=== PATIENT | female | born 1995 | race Caucasian/White ===

== ENCOUNTER → 2016-08-21 | Outpatient (CLI) | payer BC ==
[2016-08-21 18:24] LABS: BASO # 0.1 K/mm3 (0.0-0.2); BASO % 1.3 % (0.0-1.0); EOS % 0.5 % (0.0-3.0); LARGE UNSTAINED CELL # 0.1 K/mm3 (0.0-0.4); LARGE UNSTAINED CELL % 1.2 % (0.0-4.0); LYMPH # 2.5 K/mm3 (1.5-6.5); LYMPH % 27.9 % (24.0-44.0); MEAN CORPUSCULAR HEMOGLOBIN 29.3 pg (27.0-33.0); MEAN CORPUSCULAR HGB CONC 34.3 g/dl (32.0-36.5); MEAN CORPUSCULAR VOLUME 85.4 fl (80.0-96.0); MONO # 0.4 K/mm3 (0.0-0.8); MONO % 4.6 % (0.0-5.0); NEUTROPHILS # 5.5 K/mm3 (1.8-7.7); NEUTROPHILS % 64.6 % (36.0-66.0); PLATELET COUNT, AUTOMATED 202 k/mm3 (150-450); RED CELL DISTRIBUTION WIDTH 13.2 % (11.5-14.5); WHITE BLOOD COUNT 8.6 K/mm3 (4.0-10.0)
[2016-08-22 12:36] LABS: HIV SCRN NEGATIVE (NEGATIVE); HIV SCRN1 NEGATIVE (NEGATIVE)
[2016-08-22 12:37] LABS: CONTROL LINE INT CTR LINE PRESENT
[2016-08-23 09:13] LABS: HBsAg Prenatal NEGATIVE (NEGATIVE)
== END ==
LOC: M SMT 15:10
PROVIDERS: ATTEND Advanced Practice Midwife
DX: Z36 Encounter for antenatal screening of mother (principal)

== ENCOUNTER 2016-08-29 17:21 | Emergency (ER) | payer BC ==
[2016-08-29] MEDS ORDERED: ONDANSETRON 4MG/2ML VIAL (J2405) As Ordered ONE (20:56)
[2016-08-29 21:22] LABS: BASO % 0.4 % (0.0-1.0); EOS # 0.1 K/mm3 (0.0-0.50); EOS % 1.2 % (0.0-3.0); LARGE UNSTAINED CELL # 0.1 K/mm3 (0.0-0.4); LARGE UNSTAINED CELL % 1.8 % (0.0-4.0); LYMPH # 2.7 K/mm3 (1.5-6.5); MEAN CORPUSCULAR HEMOGLOBIN 29.6 pg (27.0-33.0); MEAN CORPUSCULAR HGB CONC 33.9 g/dl (32.0-36.5); MEAN CORPUSCULAR VOLUME 87.2 fl (80.0-96.0); MONO # 0.4 K/mm3 (0.0-0.8); MONO % 6.1 % (0.0-5.0); NEUTROPHILS # 3.4 K/mm3 (1.8-7.7); PLATELET COUNT, AUTOMATED 191 k/mm3 (150-450); RED CELL DISTRIBUTION WIDTH 12.4 % (11.5-14.5)
[2016-08-29 21:24] LABS: WHITE BLOOD COUNT 6.7 K/mm3 (4.0-10.0)
[2016-08-29 21:25] LABS: NEUTROPHILS % 50.5 % (36.0-66.0)
[2016-08-29 22:00] LABS: ANION GAP 9 MEQ/L (8-16); BLOOD UREA NITROGEN 7 MG/DL (7-18); CALCIUM LEVEL 8.7 MG/DL (8.5-10.1); CARBON DIOXIDE LEVEL 28 MEQ/L (21-32); CHLORIDE LEVEL 104 MEQ/L (98-107); CREATININE FOR GFR 0.76 MG/DL (0.55-1.02); GLUCOSE, FASTING 124 MG/DL (70-105); HCG, SERUM QUANTITATIVE 85925 MIU/ML; POTASSIUM SERUM 3.3 MEQ/L (3.5-5.1); SODIUM LEVEL 141 MEQ/L (136-145)
--- NOTE | 2016-08-29 22:40 | REPUSA ---
HISTORY: Assess for demise COMPARISON : None FINDINGS: Ultrasound examination of the pelvis was performed using transabdominal technique with grayscale, col or Doppler flow and spectral waveform analysis Anteverted uterus demonstrates a single gestational sac containing pole with CRL measuring 1.2 cm correlating to 7 weeks, 3 days gestation. heart rate 157 BPM. For technical reasons KATEY could not be obtained. Amniotic fluid is subjectively normal. No subchorionic hemorrhage. The maternal adnexal cul-de-sac regions demonstrate no significant abnorm alities. Both ovaries demonstrate no significant abnormalities. Given the early gestational age, the placenta location and amniotic fluid index could not be obtained . IMPRESSION: Single, live intrauterine gestation with an estimated age of 7 weeks, 3 days gestation with expected date of delivery 04/14/2017.
[2016-08-29] MEDS ORDERED: NITROFURANTOIN (MACROBID) 100 MG CAP As Ordered ONE (22:48)
--- NOTE | 2016-08-29 22:54 | EDDOCDS ---
Physician Documentation [facility] Name: Ashli Miller Age: 20 yrs Sex: Female : 1995 Arrival Date: 08/29/2016 Time: 17:21 Bed I4 / M4 Private MD: Kathy Frankel A Disposition: 08/29/16 22:45 Discharged to Home/Self Care. Impression: Vomiting of , unspecified, related conditions, unspecified, Urinary tract infection, site not specified. - Condition is Stable. - Discharge Instructions: Hyperemesis Gravidarum, Urinary Tract Infection. - Prescriptions for Macrobid 100 mg Oral Capsule - take 100 milligram by ORAL route every 12 hours for 10 days; 20 capsule. ZOFRAN ODT 4 mg - dissolve 1 tablet by ORAL route 4 times per day As needed do not chew, do not swallow whole; 10 tablet. - Medication Reconciliation, Local Pharmacy Hours form. - Follow up: Sherry Frey MD; When: 2 - 3 days; Reason: Recheck today's complaints, Continuance of care. - Problem is new. - Symptoms have improved. - Notes: USE MEDICATIONS INSTRUCTED, FOLLOW UP WITH YOUR DOCTOR IN 2-3 DAYS, RETURN TO THE ER IF THE SYMPTOMS WORSEN OR BECOME CONCERNING Historical: - Allergies: no known allergies; - Home Meds: 1. none - PMHx: none; - PSHx: [place] tooth extraction; - Social history: Smoking status: Patient states former smoker of tobacco. No barriers to communication noted, The patient speaks fluent Togolese. - Family history: Not pertinent. - : The pt / caregiver states he / she is not on anticoagulants. Home medication list is obtained from the patient. - Exposure Risk Screening:: None identified. 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 3 in. (160.02 cm); Pain 8/10; 21:37 BP 102 / 55 LA Supine (auto/reg); ajs 21:37 BP 105 / 56 LA Sitting (auto/reg); Pulse 85; ajs 21:37 BP 107 / 61 LA Standing (auto/reg); Pulse 82; ajs 22:48 BP 111 / 54; Pulse 80; Resp 18; Temp 98.7; Pulse Ox 97% ; Pain 0/10; ajs 17:23 Body Mass Index 23.91 (61.23 kg, 160.02 cm) cmb MDM: 20:41 IV Saline Lock ordered. ck7 20:41 NS 0.9% 1000 ml IV at bolus once ordered. ck7 20:41 Ondansetron 4 mg IVP once ordered. ck7 20:41 Orthostatic VS ordered. ck7 20:42 US 1st trimester Ordered. EDMS 20:42 CBC with Diff Ordered. EDMS 20:42 MED Profile Ordered. EDMS 20:42 Hcg, Serum Quantitative Ordered. EDMS 20:42 UA Ordered. EDMS 21:49 CBC with Diff Reviewed. ck7 22:00 Financial registration complete. gjb 22:31 MED Profile Reviewed. ck7 22:31 UA Reviewed. ck7 22:31 Hcg, Serum Quantitative Reviewed. ck7 22:32 Fluid Challenge ordered. ck7 22:32 Nitrofurantoin 100 mg PO once ordered. ck7 Administered Medications: 21:13 Drug: NS 0.9% 1000 ml [sodium chloride 0.9 % intravenous solution] Route: IV; Rate: kc3 bolus; Site: right antecubital; 22:52 Follow up: IV Status: Infusion discontinued; IV Intake: 700ml dsf 21:13 Drug: Ondansetron 4 mg [ondansetron HCl 2 mg/mL intravenous solution (2 mL)] Route: kc3 IVP; Site: right antecubital; 22:51 Drug: Nitrofurantoin 100 mg [nitrofurantoin macrocrystal 50 mg capsule (2 caps)] Route: kc3 PO; Signatures: Dispatcher [employer] EDPrabhakar Flower RN RN dwg Jaren Vines, CHULA-C RPA-Cck7 Leisa King RN RN kc3 Beck, Gabriela gjb Fuller, Desiree RN dsf MTDD
--- NOTE | 2016-08-29 22:54 | EDDOCDS ---
Nurse's Notes [facility] Name: Ashli Miller Age: 20 yrs Sex: Female : 1995 Arrival Date: 08/29/2016 Time: 17:21 Bed I4 / M4 Private MD: Kathy Frankel A Diagnosis: Vomiting of , unspecified; related conditions, unspecified;Urinary tract infection, site not specified Presentation: 08/29 18:04 Presenting complaint: Patient states: Vomiting for 3 days, states 7 weeks , dwg denies abdominal/pelvic pain. Adult Sepsis Screening: The patient does not have new or worsening altered mentation. Patient's respiratory rate is less than 22. Systolic blood pressure is greater than 100. Patient has a qSOFA score of 0- Negative Sepsis Screen. Suicide/Homicide risk assessment- the patient denies having any suicidal and/or homicidal ideations and does not present with any other emotional, behavioral or mental health complaints. Status: Patient is not a passenger service manager or dependent. Transition of care: patient was not received from another setting of care. 18:04 Acuity: SARAH Level 4 dwg 18:04 Method Of Arrival: Walkin/Carried/Asstd dwg Triage Assessment: 18:06 General: Appears in no apparent distress, uncomfortable. Pain: Pain currently is 7 out dwg of 10 on a pain scale. Pt Declines HIV testing. 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 none - PMHx: none; - PSHx: [place] tooth extraction; - Social history: Smoking status: Patient states former smoker of tobacco. No barriers to communication noted, The patient speaks fluent Telugu. - Family history: Not pertinent. - : The pt / caregiver states he / she is not on anticoagulants. Home medication list is obtained from the patient. - Exposure Risk Screening:: None identified. Screenin:52 Screening information is obtained from the patient. Fall risk: No risks identified. kc3 Assistance ADL's: requires no assistance with activities of daily living. Abuse/DV Screen: The patient / caregiver reports he/she is: not in a situation that causes fear, pain or injury. Nutritional screening: No deficits noted. Advance Directives: Currently, there is no health care proxy. home support is adequate. Assessment: 20:12 General: Appears in no apparent distress, Behavior is appropriate for age, cooperative. sls1 GI: Abdomen is non- distended Reports nausea, vomiting, Denies pain. 21:13 General: Appears in no apparent distress, comfortable, Behavior is appropriate for age, kc3 cooperative. Pain: Denies pain. Neurological: Level of Consciousness is awake, alert, obeys commands, Oriented to person, place, time. Respiratory: Respiratory effort is even, unlabored. GI: Reports nausea. Derm: Skin is pink, warm & dry. 22:00 General: Appears in no apparent distress, comfortable, Behavior is appropriate for age, kc3 cooperative. Pain: Denies pain. Neurological: Level of Consciousness is awake, alert, obeys commands, Oriented to person, place, time. Respiratory: Respiratory effort is even, unlabored. GI: Bowel sounds present X 4 quads. Abd is soft and non tender. Derm: Skin is pink, warm & dry. Vital Signs: 17:23 BP 153 / 78; Pulse 78; Resp 16; Temp 98.7(O); Pulse Ox 100% ; Weight 61.23 kg; Height 5 cmb ft. 3 in. (160.02 cm); Pain 8/10; 21:37 BP 102 / 55 LA Supine (auto/reg); ajs 21:37 BP 105 / 56 LA Sitting (auto/reg); Pulse 85; ajs 21:37 BP 107 / 61 LA Standing (auto/reg); Pulse 82; ajs 22:48 BP 111 / 54; Pulse 80; Resp 18; Temp 98.7; Pulse Ox 97% ; Pain 0/10; ajs 17:23 Body Mass Index 23.91 (61.23 kg, 160.02 cm) cmb Vitals: 17:23 Log In Time: August 29, 2016 at 17:21. cmb ED Course: 17:23 Patient visited by Malissa Jauregui. cmb 17:23 Kathy Frankel is Private Physician. cmb 17:23 Patient moved to Waiting cmb 17:24 Patient moved to Pre RCE cmb 18:05 Triage Initiated dwg 20:08 Patient moved to Triage 1 sls1 20:12 Patient visited by Tatyana Holland RN. sls1 20:31 Jaren [facility]ines RPA-C [facility]. ck7 20:32 Lm Carrero DO is Attending Physician. ck7 20:32 Patient visited by Jaren Vines RPA-C. ck7 20:45 Patient moved to I4 / M4 mb9 21:06 Patient moved to Ultrasound dmg 21:13 Hcg, Serum Quantitative Sent. kc3 21:13 MED Profile Sent. kc3 21:13 CBC with Diff Sent. kc3 21:14 Patient visited by Leisa King RN. kc3 21:14 Inserted saline lock: 20 gauge in right antecubital area and blood collected. The kc3 patient tolerated the procedure well. Labs drawn. (by ED staff). Sent per order to lab. 21:20 Patient moved to I4 / M4 dm 21:37 notified of pt was found to be finnishing eating a rice crispy treat when this gag writer roxie went into the room to check vital signs. 21:38 Patient visited by Shayy Rodriges. ajs 22:08 UA Sent. kc3 22:31 Patient visited by Jaren Vines RPA-C. ck7 22:33 Notified physician's pharmacy sales assistant of [facility]. ajs 22:34 Patient visited by Shayy Rodriges. ajs 22:44 Sherry Frey MD is Referral Physician. ck7 22:48 Patient visited by Shayy Rodriges. ajs 22:52 Discontinued IV lock intact, bleeding controlled, pressure dressing applied, No kc3 redness/swelling at site. No procedures done that require assistance. 22:53 The patient / caregiver is instructed regarding the plan of care and ED course. kc3 Administered Medications: 21:13 Drug: NS 0.9% 1000 ml [sodium chloride 0.9 % intravenous solution] Route: IV; Rate: kc3 bolus; Site: right antecubital; 22:52 Follow up: IV Status: Infusion discontinued; IV Intake: 700ml dsf 21:13 Drug: Ondansetron 4 mg [ondansetron HCl 2 mg/mL intravenous solution (2 mL)] Route: kc3 IVP; Site: right antecubital; 22:51 Drug: Nitrofurantoin 100 mg [nitrofurantoin macrocrystal 50 mg capsule (2 caps)] Route: kc3 PO; Intake: 22:52 IV: 700.00ml; Total: 700.00ml. dsf Order Results: Lab Order: CBC with Diff; SPEC'M 08/29/16 21:11 Test: WHITE BLOOD COUNT; Value: 6.7; Range: 4.0-10.0; Units: K/mm3; Status: F Test: RED BLOOD COUNT; Value: 4.57; Range: 4.00-5.40; Units: M/mm3; Status: F Test: HEMOGLOBIN; Value: 13.5; Range: 12.0-16.0; Units: g/dl; Status: F Test: HEMATOCRIT; Value: 39.8; Range: 36.0-47.0; Units: %; Status: F Test: MEAN CORPUSCULAR VOLUME; Value: 87.2; Range: 80.0-96.0; Units: fl; Status: F Test: MEAN CORPUSCULAR HEMOGLOBIN; Value: 29.6; Range: 27.0-33.0; Units: pg; Status: F Test: MEAN CORPUSCULAR HGB CONC; Value: 33.9; Range: 32.0-36.5; Units: g/dl; Status: F Test: RED CELL DISTRIBUTION WIDTH; Value: 12.4; Range: 11.5-14.5; Units: %; Status: F Test: PLATELET COUNT, AUTOMATED; Value: 191; Range: 150-450; Units: k/mm3; Status: F Test: NEUTROPHILS %; Value: 50.5; Range: 36.0-66.0; Units: %; Status: F Test: LYMPH %; Value: 40.0; Range: 24.0-44.0; Units: %; Status: F Test: MONO %; Value: 6.1; Range: 0.0-5.0; Abnormal: Above high normal; Units: %; Status: F Test: EOS %; Value: 1.2; Range: 0.0-3.0; Units: %; Status: F Test: BASO %; Value: 0.4; Range: 0.0-1.0; Units: %; Status: F Test: LARGE UNSTAINED CELL %; Value: 1.8; Range: 0.0-4.0; Units: %; Status: F Test: NEUTROPHILS #; Value: 3.4; Range: 1.8-7.7; Units: K/mm3; Status: F Test: LYMPH #; Value: 2.7; Range: 1.5-6.5; Units: K/mm3; Status: F Test: MONO #; Value: 0.4; Range: 0.0-0.8; Units: K/mm3; Status: F Test: EOS #; Value: 0.1; Range: 0.0-0.50; Units: K/mm3; Status: F Test: BASO #; Value: 0.0; Range: 0.0-0.2; Units: K/mm3; Status: F Test: LARGE UNSTAINED CELL #; Value: 0.1; Range: 0.0-0.4; Units: K/mm3; Status: F Lab Order: MED Profile; SPEC'M 08/29/16 21:10 Test: GLUCOSE, FASTING; Value: 124; Range: 70-105; Abnormal: Above high normal; Units: MG/DL; Status: F Test: BLOOD UREA NITROGEN; Value: 7; Range: 7-18; Units: MG/DL; Status: F Test: CREATININE FOR GFR; Value: 0.76; Range: 0.55-1.02; Units: MG/DL; Status: F Test: SODIUM LEVEL; Value: 141; Range: 136-145; Units: MEQ/L; Status: F Test: POTASSIUM SERUM; Value: 3.3; Range: 3.5-5.1; Abnormal: Below low normal; Units: MEQ/L; Status: F Test: CHLORIDE LEVEL; Value: 104; Range: 98-107; Units: MEQ/L; Status: F Test: CARBON DIOXIDE LEVEL; Value: 28; Range: 21-32; Units: MEQ/L; Status: F Test: ANION GAP; Value: 9; Range: 8-16; Units: MEQ/L; Status: F Test: CALCIUM LEVEL; Value: 8.7; Range: 8.5-10.1; Units: MG/DL; Status: F Lab Order: Hcg, Serum Quantitative; SPEC'M 08/29/16 21:10 Test: HCG, SERUM QUANTITATIVE; Value: 69090; Units: MIU/ML; Status: F Test Note: ; GESTATIONAL AGE APPROXIMATE HCG RANGE (MIU/ML) 0.2-1 WEEK 5-50 1-2 WEEKS 50-500 2-3 WEEKS 100-5,000 3-4 WEEKS 500-10,000 4-5 WEEKS 1,000-50,000 5-6 WEEKS 10,000-100,000 6-8 WEEKS 15,000-200,000 2-3 MONTHS 10,000-100,000 NON FEMALES LESS THAN 3.0 Patient samples may contain human heterophilic antibodies that could react with immunoassays to give falsely elevated or depressed results. This assay has been designed to minimize interference from heterophilic antibodies. Elevated hCG levels have also been associated with trophoblastic disease and nontrophoblastic neoplasms. The possibility of having these diseases should be considered before a diagnosis of is made. This test is not intended for use as a surrogate marker for aiding in the diagnosis or monitoring the treatment of cancer patients. [employer] methodology. Lab Order: UA; SPEC'M 08/29/16 21:09 Test: APPEARANCE, URINE; Value: HAZY; Range: CLEAR; Status: F Test: COLOR, URINE; Value: YELLOW; Range: YELLOW; Status: F Test: PH,URINE; Value: 5.0; Range: 5.0-9.0; Units: UNITS; Status: F Test: SPECIFIC GRAVITY URINE AUTO; Value: 1.025; Range: 1.002-1.035; Status: F Test: PROTEIN, URINE AUTO; Value: NEGATIVE; Range: NEGATIVE; Units: mg/dL; Status: F Test: GLUCOSE, URINE (UA) AUTO; Value: NEGATIVE; Range: NEGATIVE; Units: mg/dL; Status: F Test: KETONE, URINE AUTO; Value: TRACE; Range: NEGATIVE; Abnormal: Above high normal; Units: mg/dL; Status: F Test: UROBILINOGEN, URINE AUTO; Value: 0.2; Range: 0.0-2.0; Units: mg/dL; Status: F Test: BILIRUBIN, URINE AUTO; Value: NEGATIVE; Range: NEGATIVE; Status: F Test: NITRITE, URINE AUTO; Value: NEGATIVE; Range: NEGATIVE; Status: F Test: LEUKOCYTE ESTERASE, URINE AUTO; Value: 3+; Range: NEGATIVE; Abnormal: Above high normal; Status: F Test: BLOOD, URINE BLOOD; Value: NEGATIVE; Range: NEGATIVE; Status: F Test: WBC, URINE AUTO; Value: 16; Range: 0-3; Abnormal: Above high normal; Units: /HPF; Status: F Test: RBC, URINE AUTO; Value: 6; Range: 0-3; Abnormal: Above high normal; Units: /HPF; Status: F Test: BACTERIA, URINE AUTO; Value: 1+; Range: NEGATIVE; Abnormal: Above high normal; Status: F Test: SQUAMOUS EPITHELIAL CELL UR AU; Value: 2; Range: 0-6; Units: /HPF; Status: F Test: MUCUS, URINE; Value: LARGE; Range: NEGATIVE; Status: F Test: HYALINE CAST, URINE AUTO; Value: 0; Range: 0-1; Units: /LPF; Status: F Outcome: 22:45 Discharge ordered by Provider. ck7 22:52 Discharge Assessment: Patient awake, alert and oriented x 3. No cognitive and/or kc3 functional deficits noted. Patient verbalized understanding of disposition instructions. patient administered narcotics - no. The following High Risk Discharge criteria are identified: None. Condition: stable. Discharge instructions given to patient, Instructed on discharge instructions, follow up and referral plans. medication usage, Demonstrated understanding of instructions, medications, Pt was receptive of discharge instructions/ teaching. Prescriptions given X 2. Ultrasound Study completed. Property :Personal belongings accompany Pt. 22:53 Patient left the ED. kc3 Signatures: Prabhakar Sandhu, RN Norma Darby DesireeRN RN Shayy Thomas Shannon, RN RN [email or web address] Malissa Jauregui Christopher RPA-C RPA-Cck7 Ger Salas,RN RN mb9 Leisa King,JUSTIN RN kc3 ERENDIRAD
--- NOTE | 2016-08-31 23:54 | EDDOCDS ---
Physician Documentation [facility] Name: Ashli Miller Age: 20 yrs Sex: Female : 1995 Arrival Date: 08/29/2016 Time: 17:21 Bed I4 / M4 Private MD: Kathy Frankel A Disposition: 08/29/16 22:45 Discharged to Home/Self Care. Impression: Vomiting of , unspecified, related conditions, unspecified, Urinary tract infection, site not specified. - Condition is Stable. - Discharge Instructions: Hyperemesis Gravidarum, Urinary Tract Infection. - Prescriptions for Macrobid 100 mg Oral Capsule - take 100 milligram by ORAL route every 12 hours for 10 days; 20 capsule. ZOFRAN ODT 4 mg - dissolve 1 tablet by ORAL route 4 times per day As needed do not chew, do not swallow whole; 10 tablet. - Medication Reconciliation, Local Pharmacy Hours form. - Follow up: Sherry Frey MD; When: 2 - 3 days; Reason: Recheck today's complaints, Continuance of care. - Problem is new. - Symptoms have improved. - Notes: USE MEDICATIONS INSTRUCTED, FOLLOW UP WITH YOUR DOCTOR IN 2-3 DAYS, RETURN TO THE ER IF THE SYMPTOMS WORSEN OR BECOME CONCERNING Historical: - Allergies: no known allergies; - Home Meds: 1. none - PMHx: none; - PSHx: [place] tooth extraction; - Social history: Smoking status: Patient states former smoker of tobacco. No barriers to communication noted, The patient speaks fluent [place]. - Family history: Not pertinent. - : The pt / caregiver states he / she is not on anticoagulants. Home medication list is obtained from the patient. - Exposure Risk Screening:: None identified. DERRICK HAND: 08/29 18:06 LMP 07/10/2016 [facility] Vital Signs: 17:23 BP 153 / 78; Pulse 78; Resp 16; Temp 98.7(O); Pulse Ox 100% ; Weight 61.23 kg / 134.99 cmb lbs; Height 5 ft. 3 in. (160.02 cm); Pain 8/10; 21:37 BP 102 / 55 LA Supine (auto/reg); ajs 21:37 BP 105 / 56 LA Sitting (auto/reg); Pulse 85; ajs 21:37 BP 107 / 61 LA Standing (auto/reg); Pulse 82; ajs 22:48 BP 111 / 54; Pulse 80; Resp 18; Temp 98.7; Pulse Ox 97% ; Pain 0/10; ajs 17:23 Body Mass Index 23.91 (61.23 kg, 160.02 cm) cmb MDM: 20:41 IV Saline Lock ordered. ck7 20:41 NS 0.9% 1000 ml IV at bolus once ordered. ck7 20:41 Ondansetron 4 mg IVP once ordered. ck7 20:41 Orthostatic VS ordered. ck7 20:42 US 1st trimester Ordered. EDMS 20:42 CBC with Diff Ordered. EDMS 20:42 MED Profile Ordered. EDMS 20:42 Hcg, Serum Quantitative Ordered. EDMS 20:42 UA Ordered. EDMS 21:49 CBC with Diff Reviewed. ck7 22:00 Financial registration complete. gjb 22:31 MED Profile Reviewed. ck7 22:31 UA Reviewed. ck7 22:31 Hcg, Serum Quantitative Reviewed. ck7 22:32 Fluid Challenge ordered. ck7 22:32 Nitrofurantoin 100 mg PO once ordered. ck7 23:23 [facility] Payment Agreement was scanned into [employer] and attached to record. [facility] 08/30 12:00 T-Sheet-- Draft Copy was scanned into [employer] and attached to record. gb Administered Medications: 08/29 21:13 Drug: NS 0.9% 1000 ml [sodium chloride 0.9 % intravenous solution] Route: IV; Rate: kc3 bolus; Site: right antecubital; 22:52 Follow up: IV Status: Infusion discontinued; IV Intake: 700ml dsf 21:13 Drug: Ondansetron 4 mg [ondansetron HCl 2 mg/mL intravenous solution (2 mL)] Route: kc3 IVP; Site: right antecubital; 22:51 Drug: Nitrofurantoin 100 mg [nitrofurantoin macrocrystal 50 mg capsule (2 caps)] Route: kc3 PO; Signatures: Dispatcher [employer] Prabhakar Yadav RN JUSTIN dwg Joycelyn Hendrix, Reg Reg gb Jaren Vines, RPA-C RPA-Cck7 Leisa King RN RN kc3 Rosana Patel b Niesha Rolle RN dsf The chart was reviewed and I authenticate all verbal orders and agree with the evaluation and treatment provided.Attachments: 23:23 [facility] Payment Agreement gjb 08/30 12:00 T-Sheet-- Draft Copy gb Chart Complete MTDD
--- NOTE | 2016-08-31 23:54 | EDDOCDS ---
Physician Documentation [facility] Name: Ashli Miller Age: 20 yrs Sex: Female : 1995 Arrival Date: 08/29/2016 Time: 17:21 Bed I4 / M4 Private MD: Kathy Frankel A Disposition: 08/29/16 22:45 Discharged to Home/Self Care. Impression: Vomiting of , unspecified, related conditions, unspecified, Urinary tract infection, site not specified. - Condition is Stable. - Discharge Instructions: Hyperemesis Gravidarum, Urinary Tract Infection. - Prescriptions for Macrobid 100 mg Oral Capsule - take 100 milligram by ORAL route every 12 hours for 10 days; 20 capsule. ZOFRAN ODT 4 mg - dissolve 1 tablet by ORAL route 4 times per day As needed do not chew, do not swallow whole; 10 tablet. - Medication Reconciliation, Local Pharmacy Hours form. - Follow up: Sherry Frey MD; When: 2 - 3 days; Reason: Recheck today's complaints, Continuance of care. - Problem is new. - Symptoms have improved. - Notes: USE MEDICATIONS INSTRUCTED, FOLLOW UP WITH YOUR DOCTOR IN 2-3 DAYS, RETURN TO THE ER IF THE SYMPTOMS WORSEN OR BECOME CONCERNING Historical: - Allergies: no known allergies; - Home Meds: 1. none - PMHx: none; - PSHx: [place] tooth extraction; - Social history: Smoking status: Patient states former smoker of tobacco. No barriers to communication noted, The patient speaks fluent Thai. - Family history: Not pertinent. - : The pt / caregiver states he / she is not on anticoagulants. Home medication list is obtained from the patient. - Exposure Risk Screening:: None identified. 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 3 in. (160.02 cm); Pain 8/10; 21:37 BP 102 / 55 LA Supine (auto/reg); ajs 21:37 BP 105 / 56 LA Sitting (auto/reg); Pulse 85; ajs 21:37 BP 107 / 61 LA Standing (auto/reg); Pulse 82; ajs 22:48 BP 111 / 54; Pulse 80; Resp 18; Temp 98.7; Pulse Ox 97% ; Pain 0/10; ajs 17:23 Body Mass Index 23.91 (61.23 kg, 160.02 cm) cmb MDM: 20:41 IV Saline Lock ordered. ck7 20:41 NS 0.9% 1000 ml IV at bolus once ordered. ck7 20:41 Ondansetron 4 mg IVP once ordered. ck7 20:41 Orthostatic VS ordered. ck7 20:42 US 1st trimester Ordered. EDMS 20:42 CBC with Diff Ordered. EDMS 20:42 MED Profile Ordered. EDMS 20:42 Hcg, Serum Quantitative Ordered. EDMS 20:42 UA Ordered. EDMS 21:49 CBC with Diff Reviewed. ck7 22:00 Financial registration complete. gjb 22:31 MED Profile Reviewed. ck7 22:31 UA Reviewed. ck7 22:31 Hcg, Serum Quantitative Reviewed. ck7 22:32 Fluid Challenge ordered. ck7 22:32 Nitrofurantoin 100 mg PO once ordered. ck7 23:23 [facility] Payment Agreement was scanned into [employer] and attached to record. [facility] 08/30 12:00 T-Sheet-- Draft Copy was scanned into [employer] and attached to record. gb Administered Medications: 08/29 21:13 Drug: NS 0.9% 1000 ml [sodium chloride 0.9 % intravenous solution] Route: IV; Rate: kc3 bolus; Site: right antecubital; 22:52 Follow up: IV Status: Infusion discontinued; IV Intake: 700ml dsf 21:13 Drug: Ondansetron 4 mg [ondansetron HCl 2 mg/mL intravenous solution (2 mL)] Route: kc3 IVP; Site: right antecubital; 22:51 Drug: Nitrofurantoin 100 mg [nitrofurantoin macrocrystal 50 mg capsule (2 caps)] Route: kc3 PO; Signatures: Dispatcher [employer] Prabhakar Yadav RN JUSTIN dwg Joycelyn Hendrix, Reg Reg gb Jaren Vines, RPA-C RPA-Cck7 Leisa King RN RN kc3 Rosana Patel b Niesha Rolle RN dsf The chart was reviewed and I authenticate all verbal orders and agree with the evaluation and treatment provided.Attachments: 23:23 [facility] Payment Agreement gjb 08/30 12:00 T-Sheet-- Draft Copy gb Chart Complete MTDD
--- NOTE | 2016-08-31 23:54 | EDDOCDS ---
Nurse's Notes [facility] Name: Ashli Miller Age: 20 yrs Sex: Female : 1995 Arrival Date: 08/29/2016 Time: 17:21 Bed I4 / M4 Private MD: Kathy Frankel A Diagnosis: Vomiting of , unspecified; related conditions, unspecified;Urinary tract infection, site not specified Presentation: 08/29 18:04 Presenting complaint: Patient states: Vomiting for 3 days, states 7 weeks , dwg denies abdominal/pelvic pain. Adult Sepsis Screening: The patient does not have new or worsening altered mentation. Patient's respiratory rate is less than 22. Systolic blood pressure is greater than 100. Patient has a qSOFA score of 0- Negative Sepsis Screen. Suicide/Homicide risk assessment- the patient denies having any suicidal and/or homicidal ideations and does not present with any other emotional, behavioral or mental health complaints. Status: Patient is not a septic tank servicer or dependent. Transition of care: patient was not received from another setting of care. 18:04 Acuity: SARAH Level 4 dwg 18:04 Method Of Arrival: Walkin/Carried/Asstd dwg Triage Assessment: 18:06 General: Appears in no apparent distress, uncomfortable. Pain: Pain currently is 7 out dwg of 10 on a pain scale. Pt Declines HIV testing. 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 none - PMHx: none; - PSHx: [place] tooth extraction; - Social history: Smoking status: Patient states former smoker of tobacco. No barriers to communication noted, The patient speaks fluent Khmer. - Family history: Not pertinent. - : The pt / caregiver states he / she is not on anticoagulants. Home medication list is obtained from the patient. - Exposure Risk Screening:: None identified. Screenin:52 Screening information is obtained from the patient. Fall risk: No risks identified. kc3 Assistance ADL's: requires no assistance with activities of daily living. Abuse/DV Screen: The patient / caregiver reports he/she is: not in a situation that causes fear, pain or injury. Nutritional screening: No deficits noted. Advance Directives: Currently, there is no health care proxy. home support is adequate. Assessment: 20:12 General: Appears in no apparent distress, Behavior is appropriate for age, cooperative. sls1 GI: Abdomen is non- distended Reports nausea, vomiting, Denies pain. 21:13 General: Appears in no apparent distress, comfortable, Behavior is appropriate for age, kc3 cooperative. Pain: Denies pain. Neurological: Level of Consciousness is awake, alert, obeys commands, Oriented to person, place, time. Respiratory: Respiratory effort is even, unlabored. GI: Reports nausea. Derm: Skin is pink, warm & dry. 22:00 General: Appears in no apparent distress, comfortable, Behavior is appropriate for age, kc3 cooperative. Pain: Denies pain. Neurological: Level of Consciousness is awake, alert, obeys commands, Oriented to person, place, time. Respiratory: Respiratory effort is even, unlabored. GI: Bowel sounds present X 4 quads. Abd is soft and non tender. Derm: Skin is pink, warm & dry. Vital Signs: 17:23 BP 153 / 78; Pulse 78; Resp 16; Temp 98.7(O); Pulse Ox 100% ; Weight 61.23 kg; Height 5 cmb ft. 3 in. (160.02 cm); Pain 8/10; 21:37 BP 102 / 55 LA Supine (auto/reg); ajs 21:37 BP 105 / 56 LA Sitting (auto/reg); Pulse 85; ajs 21:37 BP 107 / 61 LA Standing (auto/reg); Pulse 82; ajs 22:48 BP 111 / 54; Pulse 80; Resp 18; Temp 98.7; Pulse Ox 97% ; Pain 0/10; ajs 17:23 Body Mass Index 23.91 (61.23 kg, 160.02 cm) cmb Vitals: 17:23 Log In Time: August 29, 2016 at 17:21. cmb ED Course: 17:23 Patient visited by Malissa Jauregui. cmb 17:23 Kathy Frankel is Private Physician. cmb 17:23 Patient moved to Waiting cmb 17:24 Patient moved to Pre RCE cmb 18:05 Triage Initiated dwg 20:08 Patient moved to Triage 1 sls1 20:12 Patient visited by Tatyana Holland RN. sls1 20:31 Jaren Vines RPA-C is [facility]. ck7 20:32 Lm Carrero DO is Attending Physician. ck7 20:32 Patient visited by Jaren Vines RPA-C. ck7 20:45 Patient moved to I4 / M4 mb9 21:06 Patient moved to Ultrasound dmg 21:13 Hcg, Serum Quantitative Sent. kc3 21:13 MED Profile Sent. kc3 21:13 CBC with Diff Sent. kc3 21:14 Patient visited by Leisa King RN. kc3 21:14 Inserted saline lock: 20 gauge in right antecubital area and blood collected. The kc3 patient tolerated the procedure well. Labs drawn. (by ED staff). Sent per order to lab. 21:20 Patient moved to I4 / M4 dmg 21:37 notified of pt was found to be finnishing eating a rice crispy treat when this fiction writer roxie went into the room to check vital signs. 21:38 Patient visited by Shayy Rodriges. ajs 22:08 UA Sent. kc3 22:31 Patient visited by Jaren Vines RPA-C. ck7 22:33 Notified physician's cook's assistant of [employer]. ajs 22:34 Patient visited by Shayy Rodriges. ajs 22:44 Sherry Frey MD is Referral Physician. ck7 22:48 Patient visited by Shayy Rdoriges. ajs 22:52 Discontinued IV lock intact, bleeding controlled, pressure dressing applied, No kc3 redness/swelling at site. No procedures done that require assistance. 22:53 The patient / caregiver is instructed regarding the plan of care and ED course. kc3 23:14 US 1st trimester Returned. EDMS 23:23 [facility] Agreement was scanned into [employer] and attached to record. gjb 08/30 12:00 T-Sheet-- Draft Copy was scanned into [employer] and attached to record. gb Administered Medications: 08/29 21:13 Drug: NS 0.9% 1000 ml [sodium chloride 0.9 % intravenous solution] Route: IV; Rate: kc3 bolus; Site: right antecubital; 22:52 Follow up: IV Status: Infusion discontinued; IV Intake: 700ml dsf 21:13 Drug: Ondansetron 4 mg [ondansetron HCl 2 mg/mL intravenous solution (2 mL)] Route: kc3 IVP; Site: right antecubital; 22:51 Drug: Nitrofurantoin 100 mg [nitrofurantoin macrocrystal 50 mg capsule (2 caps)] Route: kc3 PO; Intake: 22:52 IV: 700.00ml; Total: 700.00ml. dsf Order Results: Lab Order: CBC with Diff; SPEC'M 08/29/16 21:11 Test: WHITE BLOOD COUNT; Value: 6.7; Range: 4.0-10.0; Units: K/mm3; Status: F Test: RED BLOOD COUNT; Value: 4.57; Range: 4.00-5.40; Units: M/mm3; Status: F Test: HEMOGLOBIN; Value: 13.5; Range: 12.0-16.0; Units: g/dl; Status: F Test: HEMATOCRIT; Value: 39.8; Range: 36.0-47.0; Units: %; Status: F Test: MEAN CORPUSCULAR VOLUME; Value: 87.2; Range: 80.0-96.0; Units: fl; Status: F Test: MEAN CORPUSCULAR HEMOGLOBIN; Value: 29.6; Range: 27.0-33.0; Units: pg; Status: F Test: MEAN CORPUSCULAR HGB CONC; Value: 33.9; Range: 32.0-36.5; Units: g/dl; Status: F Test: RED CELL DISTRIBUTION WIDTH; Value: 12.4; Range: 11.5-14.5; Units: %; Status: F Test: PLATELET COUNT, AUTOMATED; Value: 191; Range: 150-450; Units: k/mm3; Status: F Test: NEUTROPHILS %; Value: 50.5; Range: 36.0-66.0; Units: %; Status: F Test: LYMPH %; Value: 40.0; Range: 24.0-44.0; Units: %; Status: F Test: MONO %; Value: 6.1; Range: 0.0-5.0; Abnormal: Above high normal; Units: %; Status: F Test: EOS %; Value: 1.2; Range: 0.0-3.0; Units: %; Status: F Test: BASO %; Value: 0.4; Range: 0.0-1.0; Units: %; Status: F Test: LARGE UNSTAINED CELL %; Value: 1.8; Range: 0.0-4.0; Units: %; Status: F Test: NEUTROPHILS #; Value: 3.4; Range: 1.8-7.7; Units: K/mm3; Status: F Test: LYMPH #; Value: 2.7; Range: 1.5-6.5; Units: K/mm3; Status: F Test: MONO #; Value: 0.4; Range: 0.0-0.8; Units: K/mm3; Status: F Test: EOS #; Value: 0.1; Range: 0.0-0.50; Units: K/mm3; Status: F Test: BASO #; Value: 0.0; Range: 0.0-0.2; Units: K/mm3; Status: F Test: LARGE UNSTAINED CELL #; Value: 0.1; Range: 0.0-0.4; Units: K/mm3; Status: F Lab Order: MED Profile; SPEC'M 08/29/16 21:10 Test: GLUCOSE, FASTING; Value: 124; Range: 70-105; Abnormal: Above high normal; Units: MG/DL; Status: F Test: BLOOD UREA NITROGEN; Value: 7; Range: 7-18; Units: MG/DL; Status: F Test: CREATININE FOR GFR; Value: 0.76; Range: 0.55-1.02; Units: MG/DL; Status: F Test: SODIUM LEVEL; Value: 141; Range: 136-145; Units: MEQ/L; Status: F Test: POTASSIUM SERUM; Value: 3.3; Range: 3.5-5.1; Abnormal: Below low normal; Units: MEQ/L; Status: F Test: CHLORIDE LEVEL; Value: 104; Range: 98-107; Units: MEQ/L; Status: F Test: CARBON DIOXIDE LEVEL; Value: 28; Range: 21-32; Units: MEQ/L; Status: F Test: ANION GAP; Value: 9; Range: 8-16; Units: MEQ/L; Status: F Test: CALCIUM LEVEL; Value: 8.7; Range: 8.5-10.1; Units: MG/DL; Status: F Lab Order: Hcg, Serum Quantitative; SPEC'M 08/29/16 21:10 Test: HCG, SERUM QUANTITATIVE; Value: 93149; Units: MIU/ML; Status: F Test Note: ; GESTATIONAL AGE APPROXIMATE HCG RANGE (MIU/ML) 0.2-1 WEEK 5-50 1-2 WEEKS 50-500 2-3 WEEKS 100-5,000 3-4 WEEKS 500-10,000 4-5 WEEKS 1,000-50,000 5-6 WEEKS 10,000-100,000 6-8 WEEKS 15,000-200,000 2-3 MONTHS 10,000-100,000 NON FEMALES LESS THAN 3.0 Patient samples may contain human heterophilic antibodies that could react with immunoassays to give falsely elevated or depressed results. This assay has been designed to minimize interference from heterophilic antibodies. Elevated hCG levels have also been associated with trophoblastic disease and nontrophoblastic neoplasms. The possibility of having these diseases should be considered before a diagnosis of is made. This test is not intended for use as a surrogate marker for aiding in the diagnosis or monitoring the treatment of cancer patients. Siemens Norton methodology. Lab Order: UA; SPEC'M 08/29/16 21:09 Test: APPEARANCE, URINE; Value: HAZY; Range: CLEAR; Status: F Test: COLOR, URINE; Value: YELLOW; Range: YELLOW; Status: F Test: PH,URINE; Value: 5.0; Range: 5.0-9.0; Units: UNITS; Status: F Test: SPECIFIC GRAVITY URINE AUTO; Value: 1.025; Range: 1.002-1.035; Status: F Test: PROTEIN, URINE AUTO; Value: NEGATIVE; Range: NEGATIVE; Units: mg/dL; Status: F Test: GLUCOSE, URINE (UA) AUTO; Value: NEGATIVE; Range: NEGATIVE; Units: mg/dL; Status: F Test: KETONE, URINE AUTO; Value: TRACE; Range: NEGATIVE; Abnormal: Above high normal; Units: mg/dL; Status: F Test: UROBILINOGEN, URINE AUTO; Value: 0.2; Range: 0.0-2.0; Units: mg/dL; Status: F Test: BILIRUBIN, URINE AUTO; Value: NEGATIVE; Range: NEGATIVE; Status: F Test: NITRITE, URINE AUTO; Value: NEGATIVE; Range: NEGATIVE; Status: F Test: LEUKOCYTE ESTERASE, URINE AUTO; Value: 3+; Range: NEGATIVE; Abnormal: Above high normal; Status: F Test: BLOOD, URINE BLOOD; Value: NEGATIVE; Range: NEGATIVE; Status: F Test: WBC, URINE AUTO; Value: 16; Range: 0-3; Abnormal: Above high normal; Units: /HPF; Status: F Test: RBC, URINE AUTO; Value: 6; Range: 0-3; Abnormal: Above high normal; Units: /HPF; Status: F Test: BACTERIA, URINE AUTO; Value: 1+; Range: NEGATIVE; Abnormal: Above high normal; Status: F Test: SQUAMOUS EPITHELIAL CELL UR AU; Value: 2; Range: 0-6; Units: /HPF; Status: F Test: MUCUS, URINE; Value: LARGE; Range: NEGATIVE; Status: F Test: HYALINE CAST, URINE AUTO; Value: 0; Range: 0-1; Units: /LPF; Status: F Radiology Order: US 1st trimester Test: US 1st trimester REASON FOR EXAMINATION: r/o demise; ; HISTORY: Assess for demise; COMPARISON : None; FINDINGS:; Ultrasound examination of the pelvis was performed using transabdominal technique with grayscale, col; or Doppler flow and spectral waveform analysis; Anteverted uterus demonstrates a single gestational sac containing pole with CRL measuring 1.2; cm correlating to 7 weeks, 3 days gestation.; heart rate 157 BPM.; For technical reasons KATEY could not be obtained. Amniotic fluid is subjectively normal.; No subchorionic hemorrhage. The maternal adnexal cul-de-sac regions demonstrate no significant abnorm; alities.; Both ovaries demonstrate no significant abnormalities.; Given the early gestational age, the placenta location and amniotic fluid index could not be obtained; .; IMPRESSION:; Single, live intrauterine gestation with an estimated age of 7 weeks, 3 days gestation with expected; date of delivery 04/14/2017.; ; Outcome: 22:45 Discharge ordered by Provider. ck7 22:52 Discharge Assessment: Patient awake, alert and oriented x 3. No cognitive and/or kc3 functional deficits noted. Patient verbalized understanding of disposition instructions. patient administered narcotics - no. The following High Risk Discharge criteria are identified: None. Condition: stable. Discharge instructions given to patient, Instructed on discharge instructions, follow up and referral plans. medication usage, Demonstrated understanding of instructions, medications, Pt was receptive of discharge instructions/ teaching. Prescriptions given X 2. Ultrasound Study completed. Property :Personal belongings accompany Pt. 22:53 Patient left the ED. kc3 Signatures: Dispatcher [employer] EDMS Prabhakar Sandhu, RN RN Norma Elias Gloria, Reg Reg Niesha Rolle,RN RN dsf Shayy Rodriges Shannon, RN RN sls1 Malissa Jauregui Christopher, RPA-C RPA-[id number] Ger Salas,RN RN mb9 Leisa King,RN RN kc3 Rosana Patel Chart Complete [place]
== END 2016-08-29 22:53 | disposition home or self-care (01) ==
LOC: M ED 17:21
DX: O21.9 Vomiting of pregnancy, unspecified (principal); O23.41 Unspecified infection of urinary tract in pregnancy, first trimester; Z3A.01 Less than 8 weeks gestation of pregnancy; Z87.891 Personal history of nicotine dependence
CPT/HCPCS: 36415; 76801; 80048; 81001; 84702; 85025; 96361; 96374; 99284; J2405

== ENCOUNTER 2016-09-02 22:49 | Emergency (ER) | payer BC ==
[2016-09-03] MEDS ORDERED: METOCLOPRAMIDE INJ 10MG/2ML VIAL (J2765) As Ordered ONE (01:23)
[2016-09-03] MEDS ORDERED: diphenhydrAMINE INJ 50MG/ML VIAL (J1200) As Ordered ONE (01:24)
[2016-09-03 01:46] LABS: BASO # 0.2 K/mm3 (0.0-0.2); BASO % 2.4 % (0.0-1.0); EOS # 0.1 K/mm3 (0.0-0.50); EOS % 0.7 % (0.0-3.0); LARGE UNSTAINED CELL # 0.1 K/mm3 (0.0-0.4); LARGE UNSTAINED CELL % 1.4 % (0.0-4.0); LYMPH # 2.4 K/mm3 (1.5-6.5); LYMPH % 28.2 % (24.0-44.0); MEAN CORPUSCULAR HEMOGLOBIN 29.6 pg (27.0-33.0); MEAN CORPUSCULAR HGB CONC 33.1 g/dl (32.0-36.5); MEAN CORPUSCULAR VOLUME 89.5 fl (80.0-96.0); MONO # 0.5 K/mm3 (0.0-0.8); MONO % 5.7 % (0.0-5.0); NEUTROPHILS % 61.6 % (36.0-66.0); PLATELET COUNT, AUTOMATED 169 k/mm3 (150-450); RED CELL DISTRIBUTION WIDTH 13.2 % (11.5-14.5); WHITE BLOOD COUNT 8.1 K/mm3 (4.0-10.0)
[2016-09-03 02:31] LABS: ALBUMIN 4.1 GM/DL (3.2-5.2); ALBUMIN/GLOBULIN RATIO 1.21 (1.00-1.93); ALKALINE PHOSPHATASE 62 U/L (45-117); ALT/SGPT 49 U/L (12-78); AMYLASE 36 U/L (25-115); ANION GAP 10 MEQ/L (8-16); AST/SGOT 24 U/L (15-37); BILIRUBIN,DIRECT 0.2 MG/DL (0.0-0.2); BILIRUBIN,TOTAL 0.6 MG/DL (0.2-1.0); BLOOD UREA NITROGEN 10 MG/DL (7-18); CALCIUM LEVEL 8.8 MG/DL (8.5-10.1); CARBON DIOXIDE LEVEL 26 MEQ/L (21-32); CHLORIDE LEVEL 104 MEQ/L (98-107); CREATININE FOR GFR 0.65 MG/DL (0.55-1.02); GLUCOSE, FASTING 66 MG/DL (70-105); HCG, SERUM QUANTITATIVE 154850 MIU/ML; POTASSIUM SERUM 3.7 MEQ/L (3.5-5.1); SODIUM LEVEL 140 MEQ/L (136-145); TOTAL PROTEIN 7.5 GM/DL (6.4-8.2)
--- NOTE | 2016-09-03 03:09 | EDDOCDS ---
Physician Documentation [facility] Name: Ashli Miller Age: 20 yrs Sex: Female : 1995 Arrival Date: 09/02/2016 Time: 22:49 Bed I4 / M4 Private MD: Kathy Frankel A Disposition: 09/03/16 02:56 Discharged to Home/Self Care. Impression: Hyperemesis gravidarum with metabolic disturbance, Dehydration. - Condition is Stable. - Discharge Instructions: Dehydration, Adult, Hyperemesis Gravidarum, Morning Sickness, [id number]. - Prescriptions for Reglan 10 mg Oral Tablet - take 1 tablet by ORAL route every 6 hours take 30 minutes before meals and at bedtime; 20 tablet. - Medication Reconciliation, Local Pharmacy Hours form. - Follow up: Kathy Frankel; When: Call to arrange an appointment; Reason: Recheck today's complaints, Continuance of care. - Problem is an ongoing problem. - Symptoms have improved. Historical: - Allergies: No known drug Allergies; - Home Meds: 1. Zofran (as hydrochloride) 4 mg Oral tab 4 mg as needed (Last dose: 09/02/2016 06:00) 2. Macrobid 100 mg Oral cap 1 cap every 12 hours for Bacterial Urinary Tract Infection (Last dose: 09/02/2016 06:00) - PMHx: none; - Social history: Smoking status: Patient states was never smoker of tobacco. No barriers to communication noted, The patient speaks fluent Cuban, Speaks appropriately for age. - Family history: Not pertinent. - : The pt / caregiver states he / she is not on anticoagulants. Home medication list is obtained from the patient, [employer] import data. - Exposure Risk Screening:: None identified. 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 3 in. (160.02 cm) (R); Pain 6/10; 09/03 01:45 BP 105 / 56 Supine; Pulse 73; rw1 01:45 BP 115 / 61 Sitting; Pulse 88; rw1 01:45 BP 119 / 70 Standing; Pulse 104; rw1 03:06 BP 101 / 54; Pulse 93; Resp 16; Temp 98.9(O); Pulse Ox 98% on R/A; Pain 0/10; rw1 09/02 22:50 Body Mass Index 23.91 (61.23 kg, 160.02 cm) gr2 MDM: 01:21 NS 0.9% 1000 ml IV at bolus once ordered. mo1 01:21 IV Saline Lock ordered. mo1 01:21 Undress patient appropriately for examination ordered. mo1 01:22 Metoclopramide 10 mg IV at 40 mg/hr once over 15 mins ordered. mo1 01:22 diphenhydrAMINE 25 mg IVP once ordered. mo1 01:23 Amylase Ordered. EDMS 01:23 Basic Metabolic Profile Ordered. EDMS 01:23 CBC with Diff Ordered. EDMS 01:23 Lipase Ordered. EDMS 01:23 Liver Profile Ordered. EDMS 01:23 Urinalysis Ordered. EDMS 01:23 NOTHING BY MOUTH+DIET ordered. EDMS 01:27 Orthostatic VS ordered. mo1 01:27 HCG, SERUM QUANTITATIVE Ordered. EDMS 02:11 CBC with Diff Reviewed. mo1 02:11 Urinalysis Reviewed. mo1 02:35 Financial registration complete. [facility] 02:42 Basic Metabolic Profile Reviewed. mo1 02:43 Amylase Reviewed. mo1 02:43 Lipase Reviewed. mo1 02:43 Liver Profile Reviewed. mo1 02:43 HCG, SERUM QUANTITATIVE Reviewed. mo1 Administered Medications: 01:52 Drug: NS 0.9% 1000 ml [sodium chloride 0.9 % intravenous solution] Route: IV; Rate: ld5 bolus; Site: right forearm; 03:08 Follow up: IV Status: Completed infusion rw1 01:52 Drug: Metoclopramide 10 mg [metoclopramide 5 mg/mL injection solution] Route: IV; Rate: ld5 40 mg/hr; Infused Over: 15 mins; Site: right forearm; 02:27 Follow up: IV Status: Completed infusion ld5 01:52 Drug: diphenhydrAMINE 25 mg [diphenhydramine 50 mg/mL injection solution (0.5 mL)] ld5 Route: IVP; Site: right forearm; 02:25 Follow up: Response: Nausea is decreased ld5 Signatures: Dispatcher [employer] EDMS Eden Souza RN RN kmg1 Luis Parsons LPN MIXER ATTENDANT rw1 Chantel Rios RN RN ld5 Ger Alcantara PA PA mo1 Mehnaz Conn [facility] The chart was reviewed and I authenticate all verbal orders and agree with the evaluation and treatment provided.Corrections: (The following items were deleted from the chart) 01:27 01:23 HCG, SERUM QUANTITATIVE+LAB ordered. EDMS EDMS MTDD
--- NOTE | 2016-09-03 03:09 | EDDOCDS ---
Nurse's Notes [facility] Name: Ashli Miller Age: 20 yrs Sex: Female : 1995 Arrival Date: 09/02/2016 Time: 22:49 Bed I4 / M4 Private MD: Kathy Frankel A Diagnosis: Hyperemesis gravidarum with metabolic disturbance;Dehydration Presentation: 09/02 22:57 Presenting complaint: Patient states: Unable to retain food and fluid since . kmg1 Headache. Adult Sepsis Screening: The patient does not have new or worsening altered mentation. Patient's respiratory rate is less than 22. Systolic blood pressure is greater than 100. Patient has a qSOFA score of 0- Negative Sepsis Screen. Suicide/Homicide risk assessment- the patient denies having any suicidal and/or homicidal ideations and does not present with any other emotional, behavioral or mental health complaints. 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 Transition of care: patient was not received from another setting of care. 22:57 Acuity: SARAH Level 4 [facility] [place] 22:57 Method Of Arrival: Walkin/Carried/Asstd km Triage Assessment: 22:59 General: Appears in no apparent distress, uncomfortable, Behavior is appropriate for kmg1 age, cooperative, quiet. Pain: Location: forehead Pain currently is 6 out of 10 on a pain scale. Quality of pain is described as throbbing, pulsating, Pain began 1 day ago. HIV screening NA for this visit Offered previously. Neurological: Reports headache. GI: Reports nausea, vomiting. 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 Zofran (as hydrochloride) 4 mg Oral tab 4 mg as needed (Last dose: 09/02/2016 06:00) 2. Macrobid 100 mg Oral cap 1 cap every 12 hours for Bacterial Urinary Tract Infection (Last dose: 09/02/2016 06:00) - PMHx: none; - Social history: Smoking status: Patient states was never smoker of tobacco. No barriers to communication noted, The patient speaks fluent [place], Speaks appropriately for age. - Family history: Not pertinent. - : The pt / caregiver states he / she is not on anticoagulants. Home medication list is obtained from the patient, Eons import data. - Exposure Risk Screening:: None identified. Screenin/22 01:52 Screening information is obtained from the patient. Fall risk: No risks identified. ld5 Assistance ADL's: requires no assistance with activities of daily living. Abuse/DV Screen: The patient / caregiver reports he/she is: not in a situation that causes fear, pain or injury. Nutritional screening: No deficits noted. Advance Directives: Currently, there is no health care proxy. home support is adequate. Assessment: 01:52 General: Appears in no apparent distress, Behavior is cooperative. Pain: Location: ld5 forehead and abdomen Pain currently is 7 out of 10 on a pain scale. Neurological: Level of Consciousness is awake, alert. Neurological: Reports dizziness, headache. Respiratory: Airway is patent Respiratory effort is even, unlabored. GI: Abdomen is non- distended Bowel sounds present X 4 quads. Abd is soft and non tender X 4 quads. Reports nausea, vomiting, intolerance of food, intolerance of fluids. : Denies vaginal bleeding. Derm: Skin is intact, Skin is dry. 02:27 General: Pt laying in bed. Reports decreased pain and nausea but "I can't get my legs ld5 to stop twitching". Will continue to monitor. 03:06 Reassessment: Patient appears in no apparent distress at this time. Patient denies pain rw1 at this time. Patient states feeling better. Patient states symptoms have improved. Vital Signs: 09/02 22:50 BP 109 / 59; Pulse 97; Resp 18 S; Temp 99.5(O); Pulse Ox 100% ; Weight 61.23 kg (R); gr2 Height 5 ft. 3 in. (160.02 cm) (R); Pain 6/10; 09/03 01:45 BP 105 / 56 Supine; Pulse 73; rw1 01:45 BP 115 / 61 Sitting; Pulse 88; rw1 01:45 BP 119 / 70 Standing; Pulse 104; rw1 03:06 BP 101 / 54; Pulse 93; Resp 16; Temp 98.9(O); Pulse Ox 98% on R/A; Pain 0/10; rw1 09/02 22:50 Body Mass Index 23.91 (61.23 kg, 160.02 cm) gr2 Vitals: 09/02 22:50 Log In Time: September 02, 2016 at 22:50. gr2 ED Course: 22:50 Patient visited by Ella Douglass. gr2 22:50 Kathy Frankel is Private Physician. gr2 22:50 Patient moved to Waiting gr2 22:52 Patient visited by Ella Douglass. gr2 22:53 Patient moved to Pre RCE gr2 22:58 Triage Initiated kmg1 23:01 Patient visited by Eden Souza RN. kmg1 23:57 Patient moved to MTA Wait cz 09/03 00:07 Patient visited by Layton Kothari, MATHIEU. kb5 00:07 Patient moved to I4 / M4 kb5 00:54 Ger Alcantara PA is PHCP. mo1 00:54 Zander Dunaway DO is Attending Physician. mo1 01:11 Patient visited by Ger Alcantara PA. mo1 01:40 Amylase Sent. rw1 01:40 Basic Metabolic Profile Sent. rw1 01:40 CBC with Diff Sent. rw1 01:40 Lipase Sent. rw1 01:40 Liver Profile Sent. rw1 01:40 Urinalysis Sent. rw1 01:40 Inserted saline lock: 20 gauge in right forearm and blood collected. The patient rw1 tolerated the procedure well. 01:52 The patient / caregiver is instructed regarding the plan of care and ED course. ld5 Accompanied by Friend, Patient has correct armband on for positive identification. 01:54 Patient visited by Chantel Rios RN. ld5 02:15 Patient name changed from Ashli\\S\\M\\S\\Miller\\S\\ to Ashli\\S\\Ember\\S\\Miller. EDMS 02:28 Patient visited by Chantel Rios RN. ld5 02:56 Kathy Frankel is Referral Physician. mo1 03:06 Discontinued IV lock intact, bleeding controlled, pressure dressing applied, No rw1 redness/swelling at site. No procedures done that require assistance. Administered Medications: 01:52 Drug: NS 0.9% 1000 ml [sodium chloride 0.9 % intravenous solution] Route: IV; Rate: ld5 bolus; Site: right forearm; 03:08 Follow up: IV Status: Completed infusion rw1 01:52 Drug: Metoclopramide 10 mg [metoclopramide 5 mg/mL injection solution] Route: IV; Rate: ld5 40 mg/hr; Infused Over: 15 mins; Site: right forearm; 02:27 Follow up: IV Status: Completed infusion ld5 01:52 Drug: diphenhydrAMINE 25 mg [diphenhydramine 50 mg/mL injection solution (0.5 mL)] ld5 Route: IVP; Site: right forearm; 02:25 Follow up: Response: Nausea is decreased ld5 Order Results: Lab Order: Amylase; SPEC09/03/16 01:37 Test: AMYLASE; Value: 36; Range: 25-115; Units: U/L; Status: F Lab Order: Basic Metabolic Profile; 09/03/16 01:37 Test: GLUCOSE, FASTING; Value: 66; Range: 70-105; Abnormal: Below low normal; Units: MG/DL; Status: F Test: BLOOD UREA NITROGEN; Value: 10; Range: 7-18; Units: MG/DL; Status: F Test: CREATININE FOR GFR; Value: 0.65; Range: 0.55-1.02; Units: MG/DL; Status: F Test: SODIUM LEVEL; Value: 140; Range: 136-145; Units: MEQ/L; Status: F Test: POTASSIUM SERUM; Value: 3.7; Range: 3.5-5.1; Units: MEQ/L; Status: F Test: CHLORIDE LEVEL; Value: 104; Range: 98-107; Units: MEQ/L; Status: F Test: CARBON DIOXIDE LEVEL; Value: 26; Range: 21-32; Units: MEQ/L; Status: F Test: ANION GAP; Value: 10; Range: 8-16; Units: MEQ/L; Status: F Test: CALCIUM LEVEL; Value: 8.8; Range: 8.5-10.1; Units: MG/DL; Status: F Lab Order: CBC with Diff; 09/03/16 01:37 Test: WHITE BLOOD COUNT; Value: 8.1; Range: 4.0-10.0; Units: K/mm3; Status: F Test: RED BLOOD COUNT; Value: 4.88; Range: 4.00-5.40; Units: M/mm3; Status: F Test: HEMOGLOBIN; Value: 14.4; Range: 12.0-16.0; Units: g/dl; Status: F Test: HEMATOCRIT; Value: 43.6; Range: 36.0-47.0; Units: %; Status: F Test: MEAN CORPUSCULAR VOLUME; Value: 89.5; Range: 80.0-96.0; Units: fl; Status: F Test: MEAN CORPUSCULAR HEMOGLOBIN; Value: 29.6; Range: 27.0-33.0; Units: pg; Status: F Test: MEAN CORPUSCULAR HGB CONC; Value: 33.1; Range: 32.0-36.5; Units: g/dl; Status: F Test: RED CELL DISTRIBUTION WIDTH; Value: 13.2; Range: 11.5-14.5; Units: %; Status: F Test: PLATELET COUNT, AUTOMATED; Value: 169; Range: 150-450; Units: k/mm3; Status: F Test: NEUTROPHILS %; Value: 61.6; Range: 36.0-66.0; Units: %; Status: F Test: LYMPH %; Value: 28.2; Range: 24.0-44.0; Units: %; Status: F Test: MONO %; Value: 5.7; Range: 0.0-5.0; Abnormal: Above high normal; Units: %; Status: F Test: EOS %; Value: 0.7; Range: 0.0-3.0; Units: %; Status: F Test: BASO %; Value: 2.4; Range: 0.0-1.0; Abnormal: Above high normal; Units: %; Status: F Test: LARGE UNSTAINED CELL %; Value: 1.4; Range: 0.0-4.0; Units: %; Status: F Test: NEUTROPHILS #; Value: 5.0; Range: 1.8-7.7; Units: K/mm3; Status: F Test: LYMPH #; Value: 2.4; Range: 1.5-6.5; Units: K/mm3; Status: F Test: MONO #; Value: 0.5; Range: 0.0-0.8; Units: K/mm3; Status: F Test: EOS #; Value: 0.1; Range: 0.0-0.50; Units: K/mm3; Status: F Test: BASO #; Value: 0.2; Range: 0.0-0.2; Units: K/mm3; Status: F Test: LARGE UNSTAINED CELL #; Value: 0.1; Range: 0.0-0.4; Units: K/mm3; Status: F Lab Order: Lipase; [facility] 09/03/16 01:37 Test: LIPASE; Value: 152; Range: 73-393; Units: U/L; Status: F Lab Order: Liver Profile; [facility] 09/03/16 01:37 Test: AST/SGOT; Value: 24; Range: 15-37; Units: U/L; Status: F Test: ALT/SGPT; Value: 49; Range: 12-78; Units: U/L; Status: F Test: ALKALINE PHOSPHATASE; Value: 62; Range: 45-117; Units: U/L; Status: F Test: BILIRUBIN,TOTAL; Value: 0.6; Range: 0.2-1.0; Units: MG/DL; Status: F Test: BILIRUBIN,DIRECT; Value: 0.2; Range: 0.0-0.2; Units: MG/DL; Status: F Test: TOTAL PROTEIN; Value: 7.5; Range: 6.4-8.2; Units: GM/DL; Status: F Test: ALBUMIN; Value: 4.1; Range: 3.2-5.2; Units: GM/DL; Status: F Test: ALBUMIN/GLOBULIN RATIO; Value: 1.21; Range: 1.00-1.93; Status: F Lab Order: Urinalysis; [facility] 09/03/16 01:37 Test: APPEARANCE, URINE; Value: CLEAR; Range: CLEAR; Status: F Test: COLOR, URINE; Value: YELLOW; Range: YELLOW; Status: F Test: PH,URINE; Value: 5.0; Range: 5.0-9.0; Units: UNITS; Status: F Test: SPECIFIC GRAVITY URINE AUTO; Value: 1.026; Range: 1.002-1.035; Status: F Test: PROTEIN, URINE AUTO; Value: 1+; Range: NEGATIVE; Abnormal: Above high normal; Units: mg/dL; Status: F Test: GLUCOSE, URINE (UA) AUTO; Value: NEGATIVE; Range: NEGATIVE; Units: mg/dL; Status: F Test: KETONE, URINE AUTO; Value: 2+; Range: NEGATIVE; Abnormal: Above high normal; Units: mg/dL; Status: F Test: UROBILINOGEN, URINE AUTO; Value: 0.2; Range: 0.0-2.0; Units: mg/dL; Status: F Test: BILIRUBIN, URINE AUTO; Value: NEGATIVE; Range: NEGATIVE; Status: F Test: NITRITE, URINE AUTO; Value: NEGATIVE; Range: NEGATIVE; Status: F Test: LEUKOCYTE ESTERASE, URINE AUTO; Value: TRACE; Range: NEGATIVE; Abnormal: Above high normal; Status: F Test: BLOOD, URINE BLOOD; Value: NEGATIVE; Range: NEGATIVE; Status: F Test: WBC, URINE AUTO; Value: 3; Range: 0-3; Units: /HPF; Status: F Test: RBC, URINE AUTO; Value: 4; Range: 0-3; Abnormal: Above high normal; Units: /HPF; Status: F Test: BACTERIA, URINE AUTO; Value: NEGATIVE; Range: NEGATIVE; Status: F Test: SQUAMOUS EPITHELIAL CELL UR AU; Value: 0; Range: 0-6; Units: /HPF; Status: F Test: MUCUS, URINE; Value: SMALL; Range: NEGATIVE; Status: F Test: HYALINE CAST, URINE AUTO; Value: 0; Range: 0-1; Units: /LPF; Status: F Lab Order: HCG, SERUM QUANTITATIVE; SPEC'M 09/03/16 01:37 Test: HCG, SERUM QUANTITATIVE; Value: [id number]; Units: MIU/ML; Status: F Test Note: ; GESTATIONAL AGE APPROXIMATE HCG RANGE (MIU/ML) 0.2-1 WEEK 5-50 1-2 WEEKS 50-500 2-3 WEEKS 100-5,000 3-4 WEEKS 500-10,000 4-5 WEEKS 1,000-50,000 5-6 WEEKS 10,000-100,000 6-8 WEEKS 15,000-200,000 2-3 MONTHS 10,000-100,000 NON FEMALES LESS THAN 3.0 Patient samples may contain human heterophilic antibodies that could react with immunoassays to give falsely elevated or depressed results. This assay has been designed to minimize interference from heterophilic antibodies. Elevated hCG levels have also been associated with trophoblastic disease and nontrophoblastic neoplasms. The possibility of having these diseases should be considered before a diagnosis of is made. This test is not intended for use as a surrogate marker for aiding in the diagnosis or monitoring the treatment of cancer patients. [employer]ens [employer] methodology. Outcome: 02:56 Discharge ordered by Provider. mo1 03:06 Discharge Assessment: Patient awake, alert and oriented x 3. No cognitive and/or rw1 functional deficits noted. Patient verbalized understanding of disposition instructions. patient administered narcotics - no. The following High Risk Discharge criteria are identified: None. Discharged to home ambulatory, with significant other. Condition: stable Condition: improved. Discharge instructions given to patient, Instructed on discharge instructions, follow up and referral plans. medication usage, Demonstrated understanding of instructions, medications, Pt was receptive of discharge instructions/ teaching. Prescriptions given X 1. No special radiology studies were completed. Property sent home with patient. 03:08 Patient left the ED. rw1 Signatures: Dispatcher [employer] EDMS Eden Souza, RN RN kmg1 Rufino Thompson, RN RN cz Luis Parsons,WOMEN'S ACTIVITIES ADVISER WOMEN'S ACTIVITIES ADVISER rw1 Layton Kothari, MATHIEU HORSE SHOER [email or web address] Chantel Rios,RN RN ld5 Ella Douglass gr2 Ger Alcantara PA PA mo1 MTDD
--- NOTE | 2016-09-05 04:08 | EDDOCDS ---
Nurse's Notes [facility] Name: Ashli Miller Age: 20 yrs Sex: Female : 1995 Arrival Date: 09/02/2016 Time: 22:49 Bed I4 / M4 Private MD: Kathy Frankel A Diagnosis: Hyperemesis gravidarum with metabolic disturbance;Dehydration Presentation: 09/02 22:57 Presenting complaint: Patient states: Unable to retain food and fluid since . kmg1 Headache. Adult Sepsis Screening: The patient does not have new or worsening altered mentation. Patient's respiratory rate is less than 22. Systolic blood pressure is greater than 100. Patient has a qSOFA score of 0- Negative Sepsis Screen. Suicide/Homicide risk assessment- the patient denies having any suicidal and/or homicidal ideations and does not present with any other emotional, behavioral or mental health complaints. Status: Patient is not a member services coordinator or dependent. Transition of care: patient was not received from another setting of care. 22:57 Acuity: SARAH Level 4 [facility] [place] Method Of Arrival: Walkin/Carried/Asstd km Triage Assessment: 22:59 General: Appears in no apparent distress, uncomfortable, Behavior is appropriate for kmg1 age, cooperative, quiet. Pain: Location: forehead Pain currently is 6 out of 10 on a pain scale. Quality of pain is described as throbbing, pulsating, Pain began 1 day ago. HIV screening NA for this visit Offered previously. Neurological: Reports headache. GI: Reports nausea, vomiting. 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 Zofran (as hydrochloride) 4 mg Oral tab 4 mg as needed (Last dose: 09/02/2016 06:00) 2. Macrobid 100 mg Oral cap 1 cap every 12 hours for Bacterial Urinary Tract Infection (Last dose: 09/02/2016 06:00) - PMHx: none; - Social history: Smoking status: Patient states was never smoker of tobacco. No barriers to communication noted, The patient speaks fluent Azerbaijani, Speaks appropriately for age. - Family history: Not pertinent. - : The pt / caregiver states he / she is not on anticoagulants. Home medication list is obtained from the patient, [employer] import data. - Exposure Risk Screening:: None identified. Screenin/22 01:52 Screening information is obtained from the patient. Fall risk: No risks identified. ld5 Assistance ADL's: requires no assistance with activities of daily living. Abuse/DV Screen: The patient / caregiver reports he/she is: not in a situation that causes fear, pain or injury. Nutritional screening: No deficits noted. Advance Directives: Currently, there is no health care proxy. home support is adequate. Assessment: 01:52 General: Appears in no apparent distress, Behavior is cooperative. Pain: Location: ld5 forehead and abdomen Pain currently is 7 out of 10 on a pain scale. Neurological: Level of Consciousness is awake, alert. Neurological: Reports dizziness, headache. Respiratory: Airway is patent Respiratory effort is even, unlabored. GI: Abdomen is non- distended Bowel sounds present X 4 quads. Abd is soft and non tender X 4 quads. Reports nausea, vomiting, intolerance of food, intolerance of fluids. : Denies vaginal bleeding. Derm: Skin is intact, Skin is dry. 02:27 General: Pt laying in bed. Reports decreased pain and nausea but "I can't get my legs ld5 to stop twitching". Will continue to monitor. 03:06 Reassessment: Patient appears in no apparent distress at this time. Patient denies pain rw1 at this time. Patient states feeling better. Patient states symptoms have improved. Vital Signs: 09/02 22:50 BP 109 / 59; Pulse 97; Resp 18 S; Temp 99.5(O); Pulse Ox 100% ; Weight 61.23 kg (R); gr2 Height 5 ft. 3 in. (160.02 cm) (R); Pain 6/10; 09/03 01:45 BP 105 / 56 Supine; Pulse 73; rw1 01:45 BP 115 / 61 Sitting; Pulse 88; rw1 01:45 BP 119 / 70 Standing; Pulse 104; rw1 03:06 BP 101 / 54; Pulse 93; Resp 16; Temp 98.9(O); Pulse Ox 98% on R/A; Pain 0/10; rw1 09/02 22:50 Body Mass Index 23.91 (61.23 kg, 160.02 cm) gr2 Vitals: 09/02 22:50 Log In Time: September 02, 2016 at 22:50. gr2 ED Course: 22:50 Patient visited by Ella Douglass. gr2 22:50 Kathy Frankel is Private Physician. gr2 22:50 Patient moved to Waiting gr2 22:52 Patient visited by Ella Douglass. gr2 22:53 Patient moved to Pre RCE gr2 22:58 Triage Initiated kmg1 23:01 Patient visited by Eden Souza RN. kmg1 23:57 Patient moved to MTA Wait cz 09/03 00:07 Patient visited by Layton Kothari, MATHIEU. kb5 00:07 Patient moved to I4 / M4 kb5 00:54 Ger Alcantara PA is PHCP. mo1 00:54 Zander Dunaway DO is Attending Physician. mo1 01:11 Patient visited by Ger Alcantara PA. mo1 01:40 Amylase Sent. rw1 01:40 Basic Metabolic Profile Sent. rw1 01:40 CBC with Diff Sent. rw1 01:40 Lipase Sent. rw1 01:40 Liver Profile Sent. rw1 01:40 Urinalysis Sent. rw1 01:40 Inserted saline lock: 20 gauge in right forearm and blood collected. The patient rw1 tolerated the procedure well. 01:52 The patient / caregiver is instructed regarding the plan of care and ED course. ld5 Accompanied by Friend, Patient has correct armband on for positive identification. 01:54 Patient visited by Chantel Rios RN. ld5 02:15 Patient name changed from Ashli\\S\\M\\S\\Miller\\S\\ to Ashli\\S\\Ember\\S\\Miller. EDMS 02:28 Patient visited by Chantel Rios RN. ld5 02:56 Kathy Frankel is Referral Physician. mo1 03:06 Discontinued IV lock intact, bleeding controlled, pressure dressing applied, No rw1 redness/swelling at site. No procedures done that require assistance. 03:16 [facility] [place] Payment Agreement was scanned into [employer]oma and attached to record. [facility] 13:09 T-Sheet-- Draft Copy was scanned into ooma and attached to record. kf3 Administered Medications: 01:52 Drug: NS 0.9% 1000 ml [sodium chloride 0.9 % intravenous solution] Route: IV; Rate: ld5 bolus; Site: right forearm; 03:08 Follow up: IV Status: Completed infusion rw1 01:52 Drug: Metoclopramide 10 mg [metoclopramide 5 mg/mL injection solution] Route: IV; Rate: ld5 40 mg/hr; Infused Over: 15 mins; Site: right forearm; 02:27 Follow up: IV Status: Completed infusion ld5 01:52 Drug: diphenhydrAMINE 25 mg [diphenhydramine 50 mg/mL injection solution (0.5 mL)] ld5 Route: IVP; Site: right forearm; 02:25 Follow up: Response: Nausea is decreased ld5 Order Results: Lab Order: Amylase; SPEC'M 09/03/16 01:37 Test: AMYLASE; Value: 36; Range: 25-115; Units: U/L; Status: F Lab Order: Basic Metabolic Profile; SPEC'09/03/16 01:37 Test: GLUCOSE, FASTING; Value: 66; Range: 70-105; Abnormal: Below low normal; Units: MG/DL; Status: F Test: BLOOD UREA NITROGEN; Value: 10; Range: 7-18; Units: MG/DL; Status: F Test: CREATININE FOR GFR; Value: 0.65; Range: 0.55-1.02; Units: MG/DL; Status: F Test: SODIUM LEVEL; Value: 140; Range: 136-145; Units: MEQ/L; Status: F Test: POTASSIUM SERUM; Value: 3.7; Range: 3.5-5.1; Units: MEQ/L; Status: F Test: CHLORIDE LEVEL; Value: 104; Range: 98-107; Units: MEQ/L; Status: F Test: CARBON DIOXIDE LEVEL; Value: 26; Range: 21-32; Units: MEQ/L; Status: F Test: ANION GAP; Value: 10; Range: 8-16; Units: MEQ/L; Status: F Test: CALCIUM LEVEL; Value: 8.8; Range: 8.5-10.1; Units: MG/DL; Status: F Lab Order: CBC with Diff; SPEC'09/03/16 01:37 Test: WHITE BLOOD COUNT; Value: 8.1; Range: 4.0-10.0; Units: K/mm3; Status: F Test: RED BLOOD COUNT; Value: 4.88; Range: 4.00-5.40; Units: M/mm3; Status: F Test: HEMOGLOBIN; Value: 14.4; Range: 12.0-16.0; Units: g/dl; Status: F Test: HEMATOCRIT; Value: 43.6; Range: 36.0-47.0; Units: %; Status: F Test: MEAN CORPUSCULAR VOLUME; Value: 89.5; Range: 80.0-96.0; Units: fl; Status: F Test: MEAN CORPUSCULAR HEMOGLOBIN; Value: 29.6; Range: 27.0-33.0; Units: pg; Status: F Test: MEAN CORPUSCULAR HGB CONC; Value: 33.1; Range: 32.0-36.5; Units: g/dl; Status: F Test: RED CELL DISTRIBUTION WIDTH; Value: 13.2; Range: 11.5-14.5; Units: %; Status: F Test: PLATELET COUNT, AUTOMATED; Value: 169; Range: 150-450; Units: k/mm3; Status: F Test: NEUTROPHILS %; Value: 61.6; Range: 36.0-66.0; Units: %; Status: F Test: LYMPH %; Value: 28.2; Range: 24.0-44.0; Units: %; Status: F Test: MONO %; Value: 5.7; Range: 0.0-5.0; Abnormal: Above high normal; Units: %; Status: F Test: EOS %; Value: 0.7; Range: 0.0-3.0; Units: %; Status: F Test: BASO %; Value: 2.4; Range: 0.0-1.0; Abnormal: Above high normal; Units: %; Status: F Test: LARGE UNSTAINED CELL %; Value: 1.4; Range: 0.0-4.0; Units: %; Status: F Test: NEUTROPHILS #; Value: 5.0; Range: 1.8-7.7; Units: K/mm3; Status: F Test: LYMPH #; Value: 2.4; Range: 1.5-6.5; Units: K/mm3; Status: F Test: MONO #; Value: 0.5; Range: 0.0-0.8; Units: K/mm3; Status: F Test: EOS #; Value: 0.1; Range: 0.0-0.50; Units: K/mm3; Status: F Test: BASO #; Value: 0.2; Range: 0.0-0.2; Units: K/mm3; Status: F Test: LARGE UNSTAINED CELL #; Value: 0.1; Range: 0.0-0.4; Units: K/mm3; Status: F Lab Order: Lipase; SPEC09/03/16 01:37 Test: LIPASE; Value: 152; Range: 73-393; Units: U/L; Status: F Lab Order: Liver Profile; 09/03/16 01:37 Test: AST/SGOT; Value: 24; Range: 15-37; Units: U/L; Status: F Test: ALT/SGPT; Value: 49; Range: 12-78; Units: U/L; Status: F Test: ALKALINE PHOSPHATASE; Value: 62; Range: 45-117; Units: U/L; Status: F Test: BILIRUBIN,TOTAL; Value: 0.6; Range: 0.2-1.0; Units: MG/DL; Status: F Test: BILIRUBIN,DIRECT; Value: 0.2; Range: 0.0-0.2; Units: MG/DL; Status: F Test: TOTAL PROTEIN; Value: 7.5; Range: 6.4-8.2; Units: GM/DL; Status: F Test: ALBUMIN; Value: 4.1; Range: 3.2-5.2; Units: GM/DL; Status: F Test: ALBUMIN/GLOBULIN RATIO; Value: 1.21; Range: 1.00-1.93; Status: F Lab Order: Urinalysis; SPEC09/03/16 01:37 Test: APPEARANCE, URINE; Value: CLEAR; Range: CLEAR; Status: F Test: COLOR, URINE; Value: YELLOW; Range: YELLOW; Status: F Test: PH,URINE; Value: 5.0; Range: 5.0-9.0; Units: UNITS; Status: F Test: SPECIFIC GRAVITY URINE AUTO; Value: 1.026; Range: 1.002-1.035; Status: F Test: PROTEIN, URINE AUTO; Value: 1+; Range: NEGATIVE; Abnormal: Above high normal; Units: mg/dL; Status: F Test: GLUCOSE, URINE (UA) AUTO; Value: NEGATIVE; Range: NEGATIVE; Units: mg/dL; Status: F Test: KETONE, URINE AUTO; Value: 2+; Range: NEGATIVE; Abnormal: Above high normal; Units: mg/dL; Status: F Test: UROBILINOGEN, URINE AUTO; Value: 0.2; Range: 0.0-2.0; Units: mg/dL; Status: F Test: BILIRUBIN, URINE AUTO; Value: NEGATIVE; Range: NEGATIVE; Status: F Test: NITRITE, URINE AUTO; Value: NEGATIVE; Range: NEGATIVE; Status: F Test: LEUKOCYTE ESTERASE, URINE AUTO; Value: TRACE; Range: NEGATIVE; Abnormal: Above high normal; Status: F Test: BLOOD, URINE BLOOD; Value: NEGATIVE; Range: NEGATIVE; Status: F Test: WBC, URINE AUTO; Value: 3; Range: 0-3; Units: /HPF; Status: F Test: RBC, URINE AUTO; Value: 4; Range: 0-3; Abnormal: Above high normal; Units: /HPF; Status: F Test: BACTERIA, URINE AUTO; Value: NEGATIVE; Range: NEGATIVE; Status: F Test: SQUAMOUS EPITHELIAL CELL UR AU; Value: 0; Range: 0-6; Units: /HPF; Status: F Test: MUCUS, URINE; Value: SMALL; Range: NEGATIVE; Status: F Test: HYALINE CAST, URINE AUTO; Value: 0; Range: 0-1; Units: /LPF; Status: F Lab Order: HCG, SERUM QUANTITATIVE; SPEC'M 09/03/16 01:37 Test: HCG, SERUM QUANTITATIVE; Value: [id number]; Units: MIU/ML; Status: F Test Note: ; GESTATIONAL AGE APPROXIMATE HCG RANGE (MIU/ML) 0.2-1 WEEK 5-50 1-2 WEEKS 50-500 2-3 WEEKS 100-5,000 3-4 WEEKS 500-10,000 4-5 WEEKS 1,000-50,000 5-6 WEEKS 10,000-100,000 6-8 WEEKS 15,000-200,000 2-3 MONTHS 10,000-100,000 NON FEMALES LESS THAN 3.0 Patient samples may contain human heterophilic antibodies that could react with immunoassays to give falsely elevated or depressed results. This assay has been designed to minimize interference from heterophilic antibodies. Elevated hCG levels have also been associated with trophoblastic disease and nontrophoblastic neoplasms. The possibility of having these diseases should be considered before a diagnosis of is made. This test is not intended for use as a surrogate marker for aiding in the diagnosis or monitoring the treatment of cancer patients. [employer] methodology. Outcome: 02:56 Discharge ordered by Provider. mo1 03:06 Discharge Assessment: Patient awake, alert and oriented x 3. No cognitive and/or rw1 functional deficits noted. Patient verbalized understanding of disposition instructions. patient administered narcotics - no. The following High Risk Discharge criteria are identified: None. Discharged to home ambulatory, with significant other. Condition: stable Condition: improved. Discharge instructions given to patient, Instructed on discharge instructions, follow up and referral plans. medication usage, Demonstrated understanding of instructions, medications, Pt was receptive of discharge instructions/ teaching. Prescriptions given X 1. No special radiology studies were completed. Property sent home with patient. 03:08 Patient left the ED. rw1 Signatures: Dispatcher [employer] EDMS Eden Souza, RN RN kmg1 Rufino Thompson, JUSTIN RN cz Luis Parsons,BUSINESS AFFAIRS MANAGER BUSINESS AFFAIRS MANAGER rw1 Layton Kothari, MATHIEU MEAT CUTTER APPRENTICE kb5 FidRon garza, Reg Reg kf3 Chantel Rios,JUSTIN RN ld5 Ella Douglass 2 Ger Alcantara PA PA mo1 Mehnaz Conn [facility] Chart Complete MTDD
--- NOTE | 2016-09-05 04:08 | EDDOCDS ---
Physician Documentation [facility] [employer] Name: Ashli Miller Age: 20 yrs Sex: Female : 1995 Arrival Date: 09/02/2016 Time: 22:49 Bed I4 / M4 Private MD: Kathy Frankel A Disposition: 09/03/16 02:56 Discharged to Home/Self Care. Impression: Hyperemesis gravidarum with metabolic disturbance, Dehydration. - Condition is Stable. - Discharge Instructions: Dehydration, Adult, Hyperemesis Gravidarum, Morning Sickness, [id number]. - Prescriptions for Reglan 10 mg Oral Tablet - take 1 tablet by ORAL route every 6 hours take 30 minutes before meals and at bedtime; 20 tablet. - Medication Reconciliation, Local Pharmacy Hours form. - Follow up: Kathy Frankel; When: Call to arrange an appointment; Reason: Recheck today's complaints, Continuance of care. - Problem is an ongoing problem. - Symptoms have improved. Historical: - Allergies: No known drug Allergies; - Home Meds: 1. Zofran (as hydrochloride) 4 mg Oral tab 4 mg as needed (Last dose: 09/02/2016 06:00) 2. Macrobid 100 mg Oral cap 1 cap every 12 hours for Bacterial Urinary Tract Infection (Last dose: 09/02/2016 06:00) - PMHx: none; - Social history: Smoking status: Patient states was never smoker of tobacco. No barriers to communication noted, The patient speaks fluent Belarusian, Speaks appropriately for age. - Family history: Not pertinent. - : The pt / caregiver states he / she is not on anticoagulants. Home medication list is obtained from the patient, [employer] import data. - Exposure Risk Screening:: None identified. 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 3 in. (160.02 cm) (R); Pain 6/10; 09/03 01:45 BP 105 / 56 Supine; Pulse 73; rw1 01:45 BP 115 / 61 Sitting; Pulse 88; rw1 01:45 BP 119 / 70 Standing; Pulse 104; rw1 03:06 BP 101 / 54; Pulse 93; Resp 16; Temp 98.9(O); Pulse Ox 98% on R/A; Pain 0/10; rw1 09/02 22:50 Body Mass Index 23.91 (61.23 kg, 160.02 cm) gr2 MDM: 01:21 NS 0.9% 1000 ml IV at bolus once ordered. mo1 01:21 IV Saline Lock ordered. mo1 01:21 Undress patient appropriately for examination ordered. mo1 01:22 Metoclopramide 10 mg IV at 40 mg/hr once over 15 mins ordered. mo1 01:22 diphenhydrAMINE 25 mg IVP once ordered. mo1 01:23 Amylase Ordered. EDMS 01:23 Basic Metabolic Profile Ordered. EDMS 01:23 CBC with Diff Ordered. EDMS 01:23 Lipase Ordered. EDMS 01:23 Liver Profile Ordered. EDMS 01:23 Urinalysis Ordered. EDMS 01:23 NOTHING BY MOUTH+DIET ordered. EDMS 01:27 Orthostatic VS ordered. mo1 01:27 HCG, SERUM QUANTITATIVE Ordered. EDMS 02:11 CBC with Diff Reviewed. mo1 02:11 Urinalysis Reviewed. mo1 02:35 Financial registration complete. [facility] 02:42 Basic Metabolic Profile Reviewed. mo1 02:43 Amylase Reviewed. mo1 02:43 Lipase Reviewed. mo1 02:43 Liver Profile Reviewed. mo1 02:43 HCG, SERUM QUANTITATIVE Reviewed. mo1 03:16 [facility] [place] Agreement was scanned into [employer] and attached to record. [facility] 13:09 T-Sheet-- Draft Copy was scanned into [employer] and attached to record. kf3 Administered Medications: 01:52 Drug: NS 0.9% 1000 ml [sodium chloride 0.9 % intravenous solution] Route: IV; Rate: ld5 bolus; Site: right forearm; 03:08 Follow up: IV Status: Completed infusion rw1 01:52 Drug: Metoclopramide 10 mg [metoclopramide 5 mg/mL injection solution] Route: IV; Rate: ld5 40 mg/hr; Infused Over: 15 mins; Site: right forearm; 02:27 Follow up: IV Status: Completed infusion ld5 01:52 Drug: diphenhydrAMINE 25 mg [diphenhydramine 50 mg/mL injection solution (0.5 mL)] ld5 Route: IVP; Site: right forearm; 02:25 Follow up: Response: Nausea is decreased ld5 Signatures: Dispatcher [employer] EDMS Eden Souza, JUSTIN RN kmg1 Luis Parsons,RAIL OPERATOR RAIL OPERATOR rw1 Ron Snow, Reg Reg kf3 Chantel Rios RN RN ld5 Ger Alcantara PA PA Mehnaz Vasquez [facility] The chart was reviewed and I authenticate all verbal orders and agree with the evaluation and treatment provided.Corrections: (The following items were deleted from the chart) 01:27 01:23 HCG, SERUM QUANTITATIVE+LAB ordered. EDMS EDMS Attachments: 03:16 [facility] Payment Agreement [facility] 13:09 T-Sheet-- Draft Copy kf3 Chart Complete MTDD
--- NOTE | 2016-09-05 04:08 | EDDOCDS ---
Physician Documentation [facility] Name: Ashli Miller Age: 20 yrs Sex: Female : 1995 Arrival Date: 09/02/2016 Time: 22:49 Bed I4 / M4 Private MD: Kathy Frankel A Disposition: 09/03/16 02:56 Discharged to Home/Self Care. Impression: Hyperemesis gravidarum with metabolic disturbance, Dehydration. - Condition is Stable. - Discharge Instructions: Dehydration, Adult, Hyperemesis Gravidarum, Morning Sickness, [id number]. - Prescriptions for Reglan 10 mg Oral Tablet - take 1 tablet by ORAL route every 6 hours take 30 minutes before meals and at bedtime; 20 tablet. - Medication Reconciliation, Local Pharmacy Hours form. - Follow up: Kathy Frankel; When: Call to arrange an appointment; Reason: Recheck today's complaints, Continuance of care. - Problem is an ongoing problem. - Symptoms have improved. Historical: - Allergies: No known drug Allergies; - Home Meds: 1. Zofran (as hydrochloride) 4 mg Oral tab 4 mg as needed (Last dose: 09/02/2016 06:00) 2. Macrobid 100 mg Oral cap 1 cap every 12 hours for Bacterial Urinary Tract Infection (Last dose: 09/02/2016 06:00) - PMHx: none; - Social history: Smoking status: Patient states was never smoker of tobacco. No barriers to communication noted, The patient speaks fluent Angolan, Speaks appropriately for age. - Family history: Not pertinent. - : The pt / caregiver states he / she is not on anticoagulants. Home medication list is obtained from the patient, [email or web address] import data. - Exposure Risk Screening:: None identified. 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 3 in. (160.02 cm) (R); Pain 6/10; 09/03 01:45 BP 105 / 56 Supine; Pulse 73; rw1 01:45 BP 115 / 61 Sitting; Pulse 88; rw1 01:45 BP 119 / 70 Standing; Pulse 104; rw1 03:06 BP 101 / 54; Pulse 93; Resp 16; Temp 98.9(O); Pulse Ox 98% on R/A; Pain 0/10; rw1 09/02 22:50 Body Mass Index 23.91 (61.23 kg, 160.02 cm) gr2 MDM: 01:21 NS 0.9% 1000 ml IV at bolus once ordered. mo1 01:21 IV Saline Lock ordered. mo1 01:21 Undress patient appropriately for examination ordered. mo1 01:22 Metoclopramide 10 mg IV at 40 mg/hr once over 15 mins ordered. mo1 01:22 diphenhydrAMINE 25 mg IVP once ordered. mo1 01:23 Amylase Ordered. EDMS 01:23 Basic Metabolic Profile Ordered. EDMS 01:23 CBC with Diff Ordered. EDMS 01:23 Lipase Ordered. EDMS 01:23 Liver Profile Ordered. EDMS 01:23 Urinalysis Ordered. EDMS 01:23 NOTHING BY MOUTH+DIET ordered. EDMS 01:27 Orthostatic VS ordered. mo1 01:27 HCG, SERUM QUANTITATIVE Ordered. EDMS 02:11 CBC with Diff Reviewed. mo1 02:11 Urinalysis Reviewed. mo1 02:35 Financial registration complete. [facility] 02:42 Basic Metabolic Profile Reviewed. mo1 02:43 Amylase Reviewed. mo1 02:43 Lipase Reviewed. mo1 02:43 Liver Profile Reviewed. mo1 02:43 HCG, SERUM QUANTITATIVE Reviewed. mo1 03:16 [facility] [place] Payment Agreement was scanned into [employer] and attached to record. [facility] 13:09 T-Sheet-- Draft Copy was scanned into [employer] and attached to record. kf3 Administered Medications: 01:52 Drug: NS 0.9% 1000 ml [sodium chloride 0.9 % intravenous solution] Route: IV; Rate: ld5 bolus; Site: right forearm; 03:08 Follow up: IV Status: Completed infusion rw1 01:52 Drug: Metoclopramide 10 mg [metoclopramide 5 mg/mL injection solution] Route: IV; Rate: ld5 40 mg/hr; Infused Over: 15 mins; Site: right forearm; 02:27 Follow up: IV Status: Completed infusion ld5 01:52 Drug: diphenhydrAMINE 25 mg [diphenhydramine 50 mg/mL injection solution (0.5 mL)] ld5 Route: IVP; Site: right forearm; 02:25 Follow up: Response: Nausea is decreased ld5 Signatures: Dispatcher [employer] EDMS Eden Souza, JUSTIN RN kmg1 Luis Parsons,MAILROOM COURIER MAILROOM COURIER rw1 Ron Snow, Reg Reg kf3 Chantel Rios RN RN ld5 Ger Alcantara PA PA Mehnaz Vasquez [facility] The chart was reviewed and I authenticate all verbal orders and agree with the evaluation and treatment provided.Corrections: (The following items were deleted from the chart) 01:27 01:23 HCG, SERUM QUANTITATIVE+LAB ordered. EDMS EDMS Attachments: 03:16 [facility] Payment Agreement [facility] 13:09 T-Sheet-- Draft Copy kf3 Chart Complete MTDD
== END 2016-09-03 03:08 | disposition home or self-care (01) ==
LOC: M ED 22:49
DX: O99.281 Endocrine, nutritional and metabolic diseases complicating pregnancy, first trimester (principal); O21.1 Hyperemesis gravidarum with metabolic disturbance; E86.0 Dehydration; Z3A.01 Less than 8 weeks gestation of pregnancy
CPT/HCPCS: 36415; 80048; 80076; 81001; 82150; 83690; 84702; 85025; 96361; 96365; 96375; 99284; J1200; J2765

== ENCOUNTER → 2016-09-21 | Outpatient (REF) | payer BC ==
[2016-09-21 19:09] LABS: BASO % 0.6 % (0.0-1.0); EOS # 0.1 K/mm3 (0.0-0.50); EOS % 1.2 % (0.0-3.0); LARGE UNSTAINED CELL # 0.1 K/mm3 (0.0-0.4); LARGE UNSTAINED CELL % 1.8 % (0.0-4.0); LYMPH # 2.7 K/mm3 (1.5-6.5); LYMPH % 38.6 % (24.0-44.0); MEAN CORPUSCULAR HGB CONC 32.2 g/dl (32.0-36.5); MEAN CORPUSCULAR VOLUME 89.9 fl (80.0-96.0); MONO # 0.4 K/mm3 (0.0-0.8); MONO % 5.5 % (0.0-5.0); NEUTROPHILS # 3.5 K/mm3 (1.8-7.7); NEUTROPHILS % 52.3 % (36.0-66.0); PLATELET COUNT, AUTOMATED 199 k/mm3 (150-450); RED CELL DISTRIBUTION WIDTH 13.3 % (11.5-14.5); WHITE BLOOD COUNT 6.7 K/mm3 (4.0-10.0)
[2016-09-21 19:53] LABS: ALBUMIN 3.5 GM/DL (3.2-5.2); ALBUMIN/GLOBULIN RATIO 1.17 (1.00-1.93); ALKALINE PHOSPHATASE 44 U/L (45-117); ALT/SGPT 21 U/L (12-78); ANION GAP 8 MEQ/L (8-16); AST/SGOT 12 U/L (15-37); BILIRUBIN,TOTAL 0.2 MG/DL (0.2-1.0); BLOOD UREA NITROGEN 16 MG/DL (7-18); CALCIUM LEVEL 8.6 MG/DL (8.5-10.1); CARBON DIOXIDE LEVEL 26 MEQ/L (21-32); CHLORIDE LEVEL 109 MEQ/L (98-107); CREATININE FOR GFR 0.71 MG/DL (0.55-1.02); GLUCOSE, FASTING 74 MG/DL (70-105); POTASSIUM SERUM 4.3 MEQ/L (3.5-5.1); SODIUM LEVEL 143 MEQ/L (136-145); TOTAL PROTEIN 6.5 GM/DL (6.4-8.2)
== END ==
LOC: M LABDRAW1 17:13
PROVIDERS: ATTEND Family Medicine
DX: R73.9 Hyperglycemia, unspecified (principal)